=== PATIENT | male | born 1985 | race Caucasian/White ===

== ENCOUNTER 2024-11-12 19:34 | Emergency (ER) | payer SELFPAY ==
[~2024-11-12] VITALS: Ht 180.3 cm; Wt 83.9 kg
[2024-11-12] MEDS ORDERED: SUBOXONE 8 MG-1 EACH BC (19:48)
[2024-11-12] MEDS ORDERED: TRAMADOL HCL50 MG PO (19:48)
[2024-11-12] MEDS ORDERED: OXYCODONE HCL5 MG PO (19:48)
[2024-11-12] MEDS ORDERED: ACETAMINOPHEN 325 MG TAB PO ONE (21:30)
== END 2024-11-12 21:43 ==
LOC: ED 19:34
DX: S69.92XA Unspecified injury of left wrist, hand and finger(s), initial encounter (principal); X58.XXXA Exposure to other specified factors, initial encounter; Y93.89 Activity, other specified; Y92.89 Other specified places as the place of occurrence of the external cause; Y99.8 Other external cause status